=== PATIENT | female | born 1990 | race Caucasian/White ===

== ENCOUNTER 2017-07-26 11:03 | Inpatient (IN) | payer MEDICAID, OTHER ==
[~2017-07-26] VITALS: Ht 170.2 cm; Wt 90.7 kg
[2017-07-26] MEDS ORDERED: OXYC-105 PO (11:36)
[2017-07-26] MEDS ORDERED: ONDANSETRON HCL 4MG/2ML VIAL IV STA (14:44)
[2017-07-26] MEDS ORDERED: KETOROLAC 30MG/ML VIAL IV STA (14:44)
[2017-07-26] MEDS ORDERED: FAMOTIDINE 20MG/2ML VIAL IV STA (14:44)
[2017-07-26 15:16] LABS: BASOPHILS % 0.5 % (0.0-2.0); EOSINOPHILS % 1.3 % (0.0-5.0); HEMOGLOBIN. 12.4 g/dL (12.0-16.0); LYMPHOCYTES % 16.8 % (20.0-50.0); MEAN CORPUSCULAR HEMOGLOBIN 29.8 pg (28.0-32.0); MEAN CORPUSCULAR VOLUME 88.9 fL (81.0-99.0); MEAN PLATELET VOLUME 9.6 fl (7.4-10.4); MONOCYTES % 9.8 % (2.0-8.0); NEUTROPHILS % 71.6 % (40.0-76.0); PLATELET 289 x1000/uL (130-400); RED BLOOD CELL COUNT 4.16 mill/uL (4.2-5.4); RED CELL DISTRIBUTION WIDTH 13.2 % (11.6-14.6)
[2017-07-26 15:31] LABS: CARBON DIOXIDE 26 mEq/L (21-32); CHLORIDE 107 mEq/L (98-107); ETHANOL BLOOD < 10 mg/dL
[2017-07-26] MEDS ORDERED: SODIUM CHLORIDE 0.9% 1,000 ML IV ONE (16:35)
[2017-07-26] MEDS ORDERED: CEFTRIAXONE 1 G PREMIX 50 ML IV ONE (16:45)
[2017-07-26 16:46] LABS: CLARITY URINE CLEAR (CLEAR); COLOR URINE YELLOW (YELLOW); GLUCOSE URINE NEGATIVE (NEGATIVE); KETONES URINE 1+ (NEGATIVE); LEUKOCYTE ESTERASE URINE TRACE (NEGATIVE); NITRITE URINE NEGATIVE (NEGATIVE); OCCULT BLOOD URINE NEGATIVE (NEGATIVE); PH URINE >=9.0 (4.5-8.0); PROTEIN URINE TRACE (NEGATIVE); SPECIFIC GRAVITY URINE 1.023 (1.005-1.030)
[2017-07-26 16:57] LABS: *BARBITURATES SCREEN URINE NEGATIVE (NEGATIVE); *BENZODIAZEPINES SCREEN URINE NEGATIVE (NEGATIVE); *COCAINE SCREEN URINE NEGATIVE (NEGATIVE); METHADONE URINE SCREEN NEGATIVE (NEGATIVE); OPIATES URINE SCREEN NEGATIVE (NEGATIVE); PHENCYCLIDINE URINE SCREEN NEGATIVE (NEGATIVE)
[2017-07-26 16:58] LABS: *AMPHETAMINES SCREEN URINE PRESUMTIVE POSITIVE (NEGATIVE); CANNABINOID URINE SCREEN PRESUMTIVE POSITIVE (NEGATIVE)
[2017-07-26] MEDS ORDERED: ACETAMINOPHEN 325MG TABLET PO PRN (17:15)
[2017-07-26] MEDS ORDERED: CLONIDINE 0.1MG TABLET PO PRN (17:15)
[2017-07-26] MEDS ORDERED: ONDANSETRON HCL 4MG/2ML VIAL IV PRN (17:15)
[2017-07-26] MEDS ORDERED: DIPHENHYDRAMINE 50MG/ML VIAL IV PRN (17:15)
[2017-07-26] MEDS ORDERED: IPRATROPIUM/ALBUTEROL 0.5-3(2.5)MG/3ML NEB INH PRN (17:15)
[2017-07-26] MEDS ORDERED: MORPHINE SULFATE 2 MG/ML CPJ (NOT FOR IM USE) IV PRN (18:00)
[2017-07-26] MEDS ORDERED: KETOROLAC 15MG/ML VIAL IV PRN (18:00)
[2017-07-26 18:30] VITALS: BP 113/78
[2017-07-26] MEDS ORDERED: KCL 20MEQ/100ML PREMIX 100 ML IV SCH (18:53)
[2017-07-26 20:30] VITALS: BP 113/78
[2017-07-26] MEDS ORDERED: ZOLPIDEM TARTRATE 5MG TABLET PO PRN (21:00)
[2017-07-26] MEDS: DEXT 5%/0.45% NACL 1000ML 1,000 ML IV SCH (22:19)
[2017-07-26] MEDS: FAMOTIDINE 20MG/2ML VIAL IV SCH (22:20)
[2017-07-26] MEDS: PIPERACILLIN/TAZ 3.375G PREMIX 50 ML IV SCH (22:20)
[2017-07-27] MEDS: PIPERACILLIN/TAZ 3.375G PREMIX 50 ML IV SCH ×2 (02:51→09:00)
[2017-07-27] MEDS: DEXT 5%/0.45% NACL 1000ML 1,000 ML IV SCH (06:36)
[2017-07-27 08:00] VITALS: BP 115/79
[2017-07-27] MEDS: FAMOTIDINE 20MG/2ML VIAL IV SCH (09:00)
[2017-07-27 10:58] LABS: BASOPHILS % 0.2 % (0.0-2.0); EOSINOPHILS % 3.7 % (0.0-5.0); HEMATOCRIT. 38.4 % (36.0-48.0); HEMOGLOBIN. 12.8 g/dL (12.0-16.0); MEAN CORPUSCULAR HEMOGLOBIN 30.1 pg (28.0-32.0); MEAN CORPUSCULAR VOLUME 90.2 fL (81.0-99.0); MONOCYTES % 9.6 % (2.0-8.0); NEUTROPHILS % 69.5 % (40.0-76.0); PLATELET 271 x1000/uL (130-400); RED BLOOD CELL COUNT 4.26 mill/uL (4.2-5.4); RED CELL DISTRIBUTION WIDTH 13.2 % (11.6-14.6)
[2017-07-27 11:21] LABS: CARBON DIOXIDE 28 mEq/L (21-32); CHLORIDE 104 mEq/L (98-107)
[2017-07-27 12:00] VITALS: BP 119/77
[2017-07-27 14:05] VITALS: BP 119/77
== END 2017-07-27 14:40 | disposition home or self-care (01) ==
LOC: ER 13:31 → EDBEDREQ 16:45 → 6EST 16:56 → ENRESERV 16:57
PROVIDERS: ADMIT Internal Medicine; ATTEND Internal Medicine
DX: K80.00 Calculus of gallbladder with acute cholecystitis without obstruction (principal); E87.6 Hypokalemia; F17.210 Nicotine dependence, cigarettes, uncomplicated; J45.909 Unspecified asthma, uncomplicated; F12.90 Cannabis use, unspecified, uncomplicated; F19.10 Other psychoactive substance abuse, uncomplicated
CPT/HCPCS: 36415; 76705; 80053; 80305; 81001; 83036; 83690; 85025; 87040; 96374; 96375; 99285; G0482; J0696; J1885; J2405; J2543; J3480; J3490; J7030

== ENCOUNTER 2017-08-23 15:31 | Emergency (ER) | payer MEDICAID ==
[~2017-08-23] VITALS: Ht 172.7 cm; Wt 86.0 kg
[~2017-08-23 15:31] MED LIST: OXYC-105 PO
[2017-08-23 15:42] VITALS: BP 125/88
== END 2017-08-23 21:24 | disposition left against medical advice (07) ==
LOC: ER 15:31
DX: S50.861A Insect bite (nonvenomous) of right forearm, initial encounter (principal); Z53.21 Procedure and treatment not carried out due to patient leaving prior to being seen by health care provider; W57.XXXA Bitten or stung by nonvenomous insect and other nonvenomous arthropods, initial encounter; Y93.89 Activity, other specified; Y92.89 Other specified places as the place of occurrence of the external cause; Y99.8 Other external cause status

== ENCOUNTER 2018-03-26 04:08 | Emergency (ER) | payer MEDICAID ==
[~2018-03-26] VITALS: Ht 170.2 cm; Wt 86.2 kg
[2018-03-26 05:51] LABS: CLARITY URINE TURBID (CLEAR); COLOR URINE YELLOW (YELLOW); KETONES URINE NEGATIVE (NEGATIVE); LEUKOCYTE ESTERASE URINE 3+ (NEGATIVE); NITRITE URINE POSITIVE (NEGATIVE); OCCULT BLOOD URINE 2+ (NEGATIVE); PH URINE 5.5 (4.5-8.0); PROTEIN URINE 2+ (NEGATIVE); SPECIFIC GRAVITY URINE 1.023 (1.005-1.030)
[2018-03-26 06:10] LABS: BASOPHILS % 0.3 % (0.0-2.0); EOSINOPHILS % 1.5 % (0.0-5.0); HEMATOCRIT. 38.3 % (36.0-48.0); HEMOGLOBIN. 12.8 g/dL (12.0-16.0); LYMPHOCYTES % 11.4 % (20.0-50.0); MEAN CORPUSCULAR HEMOGLOBIN 30.1 pg (28.0-32.0); MEAN CORPUSCULAR VOLUME 89.7 fL (81.0-99.0); MEAN PLATELET VOLUME 9.2 fl (7.4-10.4); MONOCYTES % 7.9 % (2.0-8.0); NEUTROPHILS % 78.9 % (40.0-76.0); PLATELET 371 x1000/uL (130-400); RED BLOOD CELL COUNT 4.26 mill/uL (4.2-5.4); RED CELL DISTRIBUTION WIDTH 12.8 % (11.6-14.6)
[2018-03-26 06:20] LABS: CHLORIDE 106 mEq/L (98-107)
[2018-03-26 06:26] LABS: PROTHROMBIN TIME 10.5 sec (9.4-11.6)
[2018-03-26 06:42] LABS: *BARBITURATES SCREEN URINE NEGATIVE (NEGATIVE); *BENZODIAZEPINES SCREEN URINE NEGATIVE (NEGATIVE); *COCAINE SCREEN URINE NEGATIVE (NEGATIVE); CANNABINOID URINE SCREEN NEGATIVE (NEGATIVE); METHADONE URINE SCREEN NEGATIVE (NEGATIVE)
[2018-03-26 06:43] LABS: OPIATES URINE SCREEN NEGATIVE (NEGATIVE); PHENCYCLIDINE URINE SCREEN NEGATIVE (NEGATIVE)
[2018-03-26 07:10] VITALS: BP 107/67
[2018-03-26 07:23] LABS: *AMPHETAMINES SCREEN URINE PRESUMTIVE POSITIVE (NEGATIVE)
== END 2018-03-26 07:11 | disposition home or self-care (01) ==
LOC: ER 05:12
DX: N12 Tubulo-interstitial nephritis, not specified as acute or chronic (principal); F17.200 Nicotine dependence, unspecified, uncomplicated; Z87.440 Personal history of urinary (tract) infections
CPT/HCPCS: 36415; 80053; 80305; 81003; 81025; 83690; 85025; 85610; 87077; 87086; 87186; 99284; Z7610

== ENCOUNTER 2019-11-30 16:46 | Emergency (ER) | payer MEDICAID ==
[~2019-11-30] VITALS: Ht 170.2 cm; Wt 91.0 kg
[2019-11-30] MEDS ORDERED: SODIUM CHLORIDE 0.9% 1000ML BAG (SEPSIS BOLUS) IV ONE (21:30)
[2019-11-30] MEDS ORDERED: CEFTRIAXONE 1 G PREMIX 50 ML IV ONE (21:30)
[2019-11-30 22:10] LABS: HEMOGLOBIN. 14.1 g/dL (12.0-16.0); MEAN CORPUSCULAR HEMOGLOBIN 30.2 pg (28.0-32.0); MEAN CORPUSCULAR VOLUME 90.1 fL (81.0-99.0); MEAN PLATELET VOLUME 9.5 fl (7.4-10.4); PLATELET 335 x1000/uL (130-400); RED BLOOD CELL COUNT 4.66 mill/uL (4.2-5.4)
[2019-11-30 22:13] LABS: CHLORIDE 103 mEq/L (98-107)
[2019-11-30 22:16] LABS: CLARITY URINE CLOUDY (CLEAR); COLOR URINE DARK YELLOW (YELLOW); KETONES URINE NEGATIVE (NEGATIVE); LEUKOCYTE ESTERASE URINE TRACE (NEGATIVE); NITRITE URINE NEGATIVE (NEGATIVE); OCCULT BLOOD URINE NEGATIVE (NEGATIVE); PH URINE 5.5 (4.5-8.0); PROTEIN URINE TRACE (NEGATIVE); SPECIFIC GRAVITY URINE 1.023 (1.005-1.030)
[2019-11-30 22:18] LABS: ETHANOL BLOOD < 10 mg/dL
[2019-11-30 22:41] LABS: *BARBITURATES SCREEN URINE NEGATIVE (NEGATIVE)
[2019-11-30 22:42] LABS: *BENZODIAZEPINES SCREEN URINE NEGATIVE (NEGATIVE); *COCAINE SCREEN URINE NEGATIVE (NEGATIVE); METHADONE URINE SCREEN NEGATIVE (NEGATIVE); PHENCYCLIDINE URINE SCREEN NEGATIVE (NEGATIVE)
[2019-11-30 22:43] LABS: CANNABINOID URINE SCREEN NEGATIVE (NEGATIVE)
[2019-11-30 22:44] LABS: *AMPHETAMINES SCREEN URINE PRESUMTIVE POSITIVE (NEGATIVE); OPIATES URINE SCREEN PRESUMTIVE POSITIVE (NEGATIVE)
[2019-11-30 22:45] LABS: PLATELET ESTIMATE NORMAL
[2019-11-30] MEDS ORDERED: PROCHLORPERAZINE 10MG/2ML VIAL IV PRN (23:00)
[2019-11-30] MEDS ORDERED: ACETAMINOPHEN 500MG TABLET PO ONE (23:00)
[2019-11-30 23:01] VITALS: BP 109/81
== END 2019-12-01 00:26 | disposition home or self-care (01) ==
LOC: ER 16:46 → CANBEDREQ 12-01 03:48
DX: R51 Headache (principal); N39.0 Urinary tract infection, site not specified; F17.210 Nicotine dependence, cigarettes, uncomplicated; Z71.6 Tobacco abuse counseling
CPT/HCPCS: 36415; 70450; 71045; 80053; 80305; 80320; 81003; 84145; 84484; 85025; 87086; 93005; 96365; 96375; 99284; J0696; J0780; G0480

== ENCOUNTER 2020-05-12 21:30 | Emergency (ER) | payer MEDICAID ==
[~2020-05-12] VITALS: Ht 172.7 cm; Wt 87.0 kg
[2020-05-12] MEDS ORDERED: SODIUM CHLORIDE 0.9% 500 ML IV ONE (21:45)
[2020-05-12] MEDS ORDERED: METOPROLOL TARTRATE 25MG TABLET PO ONE (22:45)
[2020-05-12] MEDS ORDERED: LABETALOL 5MG/ML SYR 20 MG/4 ML SYRINGE IV ONE (22:45)
[2020-05-12] MEDS ORDERED: ALPRAZOLAM 0.25 MG TABLET PO ONE (23:00)
[2020-05-12 23:14] LABS: CHLORIDE 108 mEq/L (98-107)
[2020-05-12 23:16] LABS: BASOPHILS % 0.4 % (0.0-2.0); EOSINOPHILS % 4.2 % (0.0-5.0); HEMATOCRIT. 39.8 % (36.0-48.0); HEMOGLOBIN. 13.4 g/dL (12.0-16.0); LYMPHOCYTES % 32.3 % (20.0-50.0); MEAN CORPUSCULAR HEMOGLOBIN 30.3 pg (28.0-32.0); MONOCYTES % 10.1 % (2.0-8.0); PLATELET 355 x1000/uL (130-400); RED BLOOD CELL COUNT 4.42 mill/uL (4.2-5.4); RED CELL DISTRIBUTION WIDTH 14.4 % (11.6-14.6)
[2020-05-12 23:20] LABS: HCG SCREEN NEGATIVE
[2020-05-13 02:05] VITALS: BP 133/79
== END 2020-05-13 02:08 | disposition home or self-care (01) ==
LOC: ER 21:30
DX: I47.1 Supraventricular tachycardia (principal)
CPT/HCPCS: 36415; 71045; 80053; 83880; 84484; 84703; 85025; 93005; 96374; 99285; J3490; J7040

== ENCOUNTER 2024-02-08 13:32 | Emergency (ER) | payer SELFPAY ==
[~2024-02-08] VITALS: Ht 172.7 cm; Wt 68.0 kg
[2024-02-08 13:55] VITALS: TEMP 98.8; O2SAT 96
[2024-02-08] MEDS ORDERED: AMOX1TAB16 MT (15:23)
[2024-02-08 15:30] VITALS: BP 108/72; PULSE 100; RESP 20
[2024-02-08] MEDS: KETOROLAC 15MG/ML VIAL IM ONE (15:30)
== END 2024-02-08 16:06 | disposition home or self-care (01) ==
LOC: ER 13:32
DX: K04.7 Periapical abscess without sinus (principal); F15.90 Other stimulant use, unspecified, uncomplicated; K80.20 Calculus of gallbladder without cholecystitis without obstruction; I47.10 Supraventricular tachycardia, unspecified
CPT/HCPCS: 99283; 96372; J1885

== ENCOUNTER 2024-04-19 06:21 | Inpatient (IN) | payer SELFPAY ==
[~2024-04-19] VITALS: Ht 165.1 cm; Wt 60.8 kg
[~2024-04-19 06:21] MED LIST changes: +AMOX1TAB16 MT
[2024-04-19 06:24] VITALS: O2SAT 98
[2024-04-19 06:53] LABS: BASOPHILS % 0.4 % (0.0-2.0); HEMATOCRIT. 36.2 % (36.0-48.0); HEMOGLOBIN. 11.9 g/dL (12.0-16.0); LYMPHOCYTES % 31.1 % (20.0-50.0); MEAN CORPUSCULAR HEMOGLOBIN 30.3 pg (28.0-32.0); MEAN CORPUSCULAR HGB CONC 32.9 g/dL (31.0-37.0); MEAN PLATELET VOLUME 8.8 fl (7.4-10.4); MONOCYTES % 9.3 % (2.0-8.0); NEUTROPHILS % 57.2 % (40.0-76.0); PLATELET 387 x1000/uL (130-400); RED BLOOD CELL COUNT 3.93 mill/uL (4.2-5.4); RED CELL DISTRIBUTION WIDTH 13.3 % (11.6-14.6); WHITE BLOOD COUNT 7.8 x1000/uL (4.5-11.0)
[2024-04-19 07:03] LABS: CHLORIDE 107 mEq/L (98-107); POTASSIUM 3.6 mEq/L (3.5-5.1); SODIUM 140 mEq/L (136-145)
[2024-04-19 07:04] LABS: CALCIUM 8.4 mg/dL (8.7-10.4); CARBON DIOXIDE 27 mEq/L (21-32)
[2024-04-19 07:09] LABS: CREATININE 0.6 mg/dL (0.6-1.0); GLUCOSE 147 mg/dL (70-105); UREA NITROGEN BLOOD 6 mg/dL (9-23)
[2024-04-19] MEDS: NALOXONE HCL 1MG/ML 2ML VIAL IV ONE (07:17)
[2024-04-19] MEDS: NALOXONE HCL 1MG/ML 2ML VIAL IV NR (07:17)
[2024-04-19 07:24] LABS: ETHANOL BLOOD < 10 mg/dL (<10)
[2024-04-19] MEDS: ONDANSETRON HCL 4MG/2ML INJ IV ONE (07:52)
[2024-04-19] MEDS: LORAZEPAM 2MG/ML INJ IV ONE (07:52)
[2024-04-19 07:58] LABS: HCG SCREEN NEGATIVE
[2024-04-19] MEDS: BUPRENORPHINE 8MG SL TABLET SL ONE (10:54)
[2024-04-19] MEDS ORDERED: ONDANSETRON HCL 4MG/2ML INJ IV PRN (11:30)
[2024-04-19] MEDS ORDERED: ACETAMINOPHEN 325MG TABLET PO PRN ×2 (11:30)
[2024-04-19] MEDS ORDERED: DOCUSATE SODIUM 100MG CAPSULE PO PRN (11:30)
[2024-04-19] MEDS ORDERED: GUAIFENESIN 200MG/10ML SUGAR FREE UDC PO PRN (11:30)
[2024-04-19] MEDS ORDERED: NA PHOS,M-B/NA PHOS,DI-BA ENEMA 118ML PR PRN (11:30)
[2024-04-19] MEDS ORDERED: NALOXONE HCL 1MG/ML 2ML VIAL IV PRN (11:30)
[2024-04-19] MEDS ORDERED: CLONIDINE 0.1MG TABLET PO PRN (11:30)
[2024-04-19] MEDS ORDERED: IPRATROPIUM/ALBUTEROL 0.5-3(2.5)MG/3ML NEB HHN PRN (11:30)
[2024-04-19] MEDS ORDERED: MAGNESIUM/ALUMINUM HYDROXIDE/SIMETHICONE 30ML UDC PO PRN (11:30)
[2024-04-19] MEDS: ENOXAPARIN 40MG/0.4ML SYR SUBCUT SCH (12:28)
[2024-04-19] MEDS: MVI, ADULT NO.1 10 ML, FOLIC ACID 1 MG, THIAMINE HCL 100 MG in SODIUM CHLORIDE 0.9% 1,0... IV SCH (13:35)
[2024-04-19 13:38] LABS: PHOSPHORUS 4.3 mg/dL (2.5-4.9)
[2024-04-19] MEDS ORDERED: NALOXONE HCL 0.4MG/ML VIAL IV PRN (15:15)
[2024-04-19 15:35] LABS: TROPONIN I HIGH SENSITIVITY 4 ng/L (3.0-34)
[2024-04-19 15:37] LABS: CREATINE KINASE 69 IU/L (34-145)
[2024-04-19 17:50] VITALS: BP 101/65; PULSE 79; RESP 20; TEMP 99
== END 2024-04-19 20:20 | disposition left against medical advice (07) | DRG 812 ==
LOC: ER 06:35 → 5WST 08:26 → 8WST 18:05
PROVIDERS: ADMIT Hospitalist; ATTEND Hospitalist
DX: T40.2X1A Poisoning by other opioids, accidental (unintentional), initial encounter (principal); F11.90 Opioid use, unspecified, uncomplicated; J45.909 Unspecified asthma, uncomplicated; F17.200 Nicotine dependence, unspecified, uncomplicated; Z53.29 Procedure and treatment not carried out because of patient's decision for other reasons; F15.90 Other stimulant use, unspecified, uncomplicated; Y92.89 Other specified places as the place of occurrence of the external cause; Z79.899 Other long term (current) drug therapy; Z91.041 Radiographic dye allergy status
CPT/HCPCS: 36415; 80048; 80320; 82550; 83735; 84100; 84484; 84703; 85025; 99285; J1650; J2060; J2310; J2405; J3411; J3490; J7030; G0480

== ENCOUNTER 2024-08-26 19:45 | Emergency (ER) | payer OTHER ==
[~2024-08-26] VITALS: Ht 162.6 cm; Wt 64.0 kg
[2024-08-26 19:46] VITALS: BP 111/73; PULSE 104; RESP 18; TEMP 98.7; O2SAT 100
[2024-08-26] MEDS ORDERED: P50 MT (20:08)
[2024-08-26] MEDS ORDERED: ALBU90AE INH (20:08)
[2024-08-26] MEDS: PREDNISONE 20MG TABLET PO ONE (20:09)
== END 2024-08-26 22:49 | disposition home or self-care (01) ==
LOC: ER 19:47
DX: R06.2 Wheezing (principal); R06.02 Shortness of breath; F15.10 Other stimulant abuse, uncomplicated; F11.10 Opioid abuse, uncomplicated; Z91.041 Radiographic dye allergy status; Z88.8 Allergy status to other drugs, medicaments and biological substances
CPT/HCPCS: 99283; J7512